=== PATIENT | male | born 1955 | race Caucasian/White ===

== ENCOUNTER 2022-04-21 16:39 | Emergency (ER) | payer OTHER ==
[2022-04-21] MEDS ORDERED: SODIUM CHLORIDE 0.9% 1,000 ML IV STA (16:51)
[2022-04-21 17:15] LABS: Basophils # (A) 0.1 k/uL (0-0.2); Basophils % (A) 2 %; Eosinophils # (A) 0.2 k/uL (0-0.7); Eosinophils % (A) 3 %; HCT 47.5 % (39.0-53.0); HGB 15.7 gm/dL (13.0-17.5); Lymphocytes # (A) 2.1 k/uL (1.0-4.8); Lymphocytes % (A) 29 %; MCH 30.6 pg (25.0-35.0); MCV 92.7 fL (80.0-100.0); Mean Platelet Volume 7.6; Monocytes # (A) 0.7 k/uL (0-1.0); Monocytes % (A) 10 %; Neutrophils % (A) 54 %; Platelet Count 238 k/uL (150-450); RBC 5.13 m/uL (4.30-5.90); WBC 7.4 k/uL (3.8-10.6)
[2022-04-21 17:23] LABS: ALT 37 U/L (4-49); AST 42 U/L (17-59); African American GFR (CKD) >90 (>60 ml/min/1.73 sqM); Albumin 4.2 g/dL (3.5-5.0); Alkaline Phosphatase 59 U/L (38-126); Anion Gap 8 mmol/L; Blood Urea Nitrogen 24 mg/dL (9-20); Calcium 8.9 mg/dL (8.4-10.2); Carbon Dioxide 24 mmol/L (22-30); Chloride 106 mmol/L (98-107); Creatine Kinase 82 U/L (55-170); Glucose 116 mg/dL (74-99); Magnesium 1.8 mg/dL (1.6-2.3); Non-African American GFR(CKD) >90 (>60 ml/min/1.73 sqM); Sodium 138 mmol/L (137-145); Total Bilirubin 1.3 mg/dL (0.2-1.3)
[2022-04-21 17:25] LABS: Potassium 4.6 mmol/L (3.5-5.1)
[2022-04-21 17:38] LABS: Prothrombin Time 11.2 sec (9.0-12.0)
[2022-04-21 17:42] LABS: Partial Thromboplastin Time 20.4 sec (22.0-30.0)
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
--- NOTE | 2022-04-21 18:02 | XR ---
EXAMINATION TYPE: XR chest 2V DATE OF EXAM: 04/21/2022 COMPARISON: NONE HISTORY: Syncope TECHNIQUE: 2 views FINDINGS: Heart and mediastinum are normal. Lungs are clear. Diaphragm is normal. Bony thorax appears normal. There are chest leads. IMPRESSION: Normal chest.
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
[2022-04-21 19:19] VITALS: BP 143/85; PULSE 84; RESP 16; TEMP 97.5
== END 2022-04-21 19:24 | disposition home or self-care (01) ==
LOC: EC 16:39
DX: S06.0X9A Concussion with loss of consciousness of unspecified duration, initial encounter (principal); R55 Syncope and collapse; J45.909 Unspecified asthma, uncomplicated; E11.9 Type 2 diabetes mellitus without complications; E78.5 Hyperlipidemia, unspecified; V19.9XXA Pedal cyclist (driver) (passenger) injured in unspecified traffic accident, initial encounter
CPT/HCPCS: 36415; 70450; 71046; 72125; 80053; 82550; 83735; 84484; 85025; 85610; 85730; 93005

== ENCOUNTER → 2024-05-15 | Outpatient (CLI) | payer OTHER ==
[2024-05-15 09:05] LABS: Partial Thromboplastin Time 24.5 sec (22.0-30.0); Prothrombin Time 10.9 sec (10.0-12.5)
[2024-05-15 15:31] LABS: Appearance,Urine Clear (Clear); Bilirubin,Urine Negative (Negative); Blood,Urine Negative (Negative); Color,Urine Yellow (Yellow); Ketones,Urine Trace (Negative); Nitrite,Urine Negative (Negative); PH, Urine 5.5; Specific Gravity,Urine 1.026 (1.001-1.030)
[2024-05-15 16:28] LABS: Basophils # (A) 0.07 X 10*3/uL (0.00-0.10); Basophils % (A) 0.9 %; Eosinophils # (A) 0.26 X 10*3/uL (0.04-0.35); Eosinophils % (A) 3.3 %; HCT 46.6 % (39.6-50.0); HGB 15.4 g/dL (13.0-17.0); Lymphocytes # (A) 2.12 X 10*3/uL (0.90-5.00); Lymphocytes % (A) 27.1 %; MCH 29.8 pg (27.0-32.0); MCV 90.3 FL (80.0-97.0); Mean Platelet Volume 9.8 FL (9.5-12.2); Monocytes # (A) 1.02 X 10*3/uL (0.20-1.00); NRBC Per 100 WBC 0 X 10*3/uL (0.00-0.01); Neutrophils % (A) 55.1 %; Platelet Count 257 X 10*3/uL (140-440); RBC 5.16 X 10*6/uL (4.40-5.60); RDW 13.4 % (11.5-14.5); WBC 7.82 X 10*3/uL (4.50-10.00)
[2024-05-15 17:17] LABS: BUN/Creat Ratio 23.08 Ratio (12.00-20.00); Blood Urea Nitrogen 27.7 mg/dL (9.0-27.0); Chloride 100 mmol/L (96-109); Glucose 160 mg/dL (70-110); Potassium 4.6 mmol/L (3.5-5.5); Sodium 138 mmol/L (135-145)
[2024-05-15 17:18] LABS: ALT 17 U/L (10-49); AST 16 U/L (14-35); Albumin 4.5 g/dL (3.8-4.9); Albumin/Globulin Ratio 1.73 Ratio (1.60-3.17); Alkaline Phosphatase 70 U/L (41-126); Calcium 9.6 mg/dL (8.7-10.3); Carbon Dioxide 23.9 mmol/L (21.6-31.8); Globulin 2.6 g/dL (1.6-3.3); Total Bilirubin 0.5 mg/dL (0.3-1.2); Total Protein 7.1 g/dL (6.2-8.2)
== END | disposition home or self-care (01) ==
LOC: LABPAT 08:04
PROVIDERS: ATTEND Orthopaedic Surgery
DX: Z01.812 Encounter for preprocedural laboratory examination (principal); M16.12 Unilateral primary osteoarthritis, left hip; Z22.322 Carrier or suspected carrier of Methicillin resistant Staphylococcus aureus
CPT/HCPCS: 80053; 81003; 83036; 85025; 85610; 85730; 86850; 86900; 86901; 87070

== ENCOUNTER 2024-05-26 08:45 | Day surgery (SDC) | payer OTHER ==
[~2024-05-26 08:45] MED LIST: HYDROmorphone 0.5 MG/0.5 ML SYRINGE IVP PRN; LIDOCAINE 1% (10MG/ML) FOR IV START INTRADERMA PRN; TRANEXAMIC 1,000 MG/100ML-NACL 1,000 MG in SALINE 1 100ML.BAG IV PRN; TRANEXAMIC 1,000 MG/100ML-NACL 1,000 MG in SALINE 1 100ML.BAG IVPB PRN
[2024-05-26] MEDS: LACTATED RINGERS 1,000 ML IV SCH (09:45)
[2024-05-26 09:53] LABS: Glucose,Whole Blood 199 mg/dL (70-110)
[2024-05-26] MEDS: IV FLUID CONTINUATION 1,000 ML IV ONE (09:55)
[2024-05-26] MEDS: oxyCODONE ER 10 MG TAB.ER.12H PO PRN (10:00)
[2024-05-26] MEDS: DOCUSATE 100 MG CAP PO PRN (10:00)
[2024-05-26] MEDS: KETOROLAC 15 MG/ML 1 ML VIAL IVP PRN (10:01)
[2024-05-26] MEDS: ONDANSETRON 4 MG/2 ML VIAL IVP PRN (10:01)
[2024-05-26] MEDS: DEXAMETHASONE SOD PHOSPHATE 10 MG/ML 1 ML VIAL IV PRN (10:01)
[2024-05-26] MEDS: FAMOTIDINE 20 MG/2 ML VIAL IVP PRN (10:01)
[2024-05-26] MEDS: ACETAMINOPHEN TAB 500 MG TAB PO PRN (10:01)
[2024-05-26] MEDS: MIDAZOLAM 2 MG/2 ML VIAL IV ONE (10:07)
[2024-05-26] MEDS ORDERED: ROPIVACAINE 5 MG/ML 30 ML VIAL ONE (11:11)
[2024-05-26] MEDS ORDERED: fentaNYL (PF) 50 MCG/ML 2 ML AMP ONE (11:11)
[2024-05-26] MEDS ORDERED: DEXAMETHASONE SOD PHOSPHATE 4 MG/ML 1 ML VIAL ONE (11:11)
[2024-05-26] MEDS ORDERED: GLYCOPYRROLATE 0.2 MG/ML 2 ML VIAL ONE (11:11)
[2024-05-26] MEDS ORDERED: HYDROmorphone (PF) 1 MG/ML ONE (11:11)
[2024-05-26] MEDS ORDERED: MIDAZOLAM 2 MG/2 ML VIAL ONE (11:11)
[2024-05-26] MEDS ORDERED: LIDOCAINE 1% INJ 10MG/ML (20 ML MDV) ONE (11:11)
[2024-05-26] MEDS ORDERED: PHENYLEPHRINE-0.9% NACL SYG 1,000 MCG/10 ML SYRINGE ONE (11:11)
[2024-05-26] MEDS ORDERED: METOPROLOL TARTRATE 5 MG/5 ML VIAL IVP ONE (11:11)
[2024-05-26] MEDS ORDERED: ROCURONIUM 10 MG/ML (5 ML VIAL) IV ONE (11:11)
[2024-05-26] MEDS ORDERED: TRANEXAMIC 1,000 MG/100ML-NACL PREMIX BAG ONE (11:11)
[2024-05-26] MEDS ORDERED: NEOSTIGMINE 1 MG/ML 10 ML VIAL ONE (11:11)
[2024-05-26] MEDS ORDERED: SUCCINYLCHOLINE CHLORIDE 200 MG/10 ML VIAL IV ONE (11:11)
[2024-05-26] MEDS ORDERED: PROPOFOL 10 MG/ML 20 ML VIAL IV ONE (11:11)
[2024-05-26] MEDS ORDERED: KETAMINE HCL IN 0.9 % NACL 50 MG/5 ML SYRINGE ONE (11:11)
[2024-05-26] MEDS: ROPIVACAINE/EPI/CLONIDINE/KET 50 ML SYRINGE MISCELLANE PRN (11:50)
[2024-05-26] MEDS: LACTATED RINGERS 1,000 ML IV ONE (12:40)
--- NOTE | 2024-05-26 13:26 | FL ---
EXAMINATION TYPE: FL guidance operating room, XR Hip Limited LT Intraoperative/procedural fluoroscopi c services were provided. Total fluoroscopy time is 33 seconds with a total of 6 submitted images to PACS. Please see the operative/procedural note for further details. DAP: 1.9680 mGym2
--- NOTE | 2024-05-26 13:26 | P.OP ---
Date of Procedure: 05/26/24 Preoperative Diagnosis: 1. Severe Left hip osteoarthritis 2. BMI 36.6 Postoperative Diagnosis: Same Procedure(s) Performed: Left direct anterior total hip arthroplasty Implants: 1. Junaid Trident II Acetabular Cup, Size #52 2. Junaid Insignia Size # 4 Femoral Stem, High Offset 3. Biolox delta femoral head, 36 mm, - 5 mm neck Anesthesia: ANTONIOA, regional Surgeon: Raghav Hay Collision Worker #1: Jonah Squires Estimated Blood Loss (ml): 200 IV fluids (ml): 800 Pathology: none sent Condition: stable Indications for Procedure: I had a long discussion with the patient in the office on the potential risks and complications of an elective total hip replacement through a direct anterior approach. Risks discussed include, but are certainly not limited to, risks from anesthesia, superficial infection requiring local wound care or antibiotics, deep maira-prosthetic joint infection and the treatment required to eradicate infection, intraoperative fracture, postoperative periprosthetic fracture, damage to local blood vessels or nerves particularly the lateral femoral cutaneous nerve, delayed wound healing requiring local wound care or possibly surgical debridement, hip dislocation, leg length discrepancy, soft tissue i rritation around the total hip implant such as iliopsoas tendinitis or trochanteric bursitis, wear and osteolysis from the implants, squeaking or audible noises, groin pain, thigh pain, heterotopic ossification, stiffness, aseptic loosening of the implants, dissatisfaction with surgical outcome, need for revision surgery, DVT, PE, swelling of the operative extremity, acute coronary event, stroke, failure to thrive, and possibly loss of life or limb. The patient understands that while these are the most common complications after an elective hip replacement there are certainly other less common complications possible. They were given ample time to ask questions regarding the potential complications of a hip replacement. Following our discussion the patient provided their verbal and written consent to go forward with an elective total hip replacement. Description of Procedure: The patient was identified in the preoperative holding area and the correct hip was marked with my initials. I reviewed the procedure and consent with the patient. All of their questions were answered. The patient was then brought back into the operating room by anesthesia. While on the [facility] anesthesia was administered by the anesthesia team. Preoperative antibiotics and tranexamic acid were also given. After the patient was under anesthesia I examined their ankles to determine their preoperative leg length discrepancy. The skin over the anterior aspect of the hip was shaved to remove hair over the site of planned incision. Both feet and ankles were padded with webril and boots for the [place] were applied. The patient was then carefully transferred onto the [place] table. A perineal post was immediately placed. The arms were placed on arm holders and were well-padded. Both boots were secured to the spars on the [place] table. The patient was positioned so that the pelvis was centered over the post. Nonsterile drapes were applied. A timeout was performed identifying the correct patient, operative extremity, and procedure. At this point fluoroscopy was brought in to take preoperative images of the pelvis and operative hip. Using the standing AP pelvis from the office as a template, a comparable image was obtained with fluoroscopy. A metallic bar was used to create a bi-ischial line for use as a reference to leg length adjustments during the procedure. Global offset was also measured on both the operative and nonoperative leg. Fluoroscopy was then brought out and a pre-scrub using a chlorhexidine scrub brush was performed. The operative limb was then prepped and draped in the standard sterile fashion. An anterior longitudinal incision was made lateral and distal to the ASIS. The skin and subcutaneous tissues were incised sharply. The underlying tensor fascia was identified and incised in its midportion. The fascia was dissected free from the underlying muscle and the muscle belly was retracted. A blunt tipped cobra retractor was placed over the superior neck under the muscle fibers of the gluteus minimus. The deep enveloping fascia of the tensor was incised. The anterior leash of vessels were then identified and cauterized. The fascia between the rectus and the capsule was then incised and the pre-capsular fat was excised. A second Cobra was placed inferior to the neck. The interval between the rectus and iliocapsularis and the hip capsule was developed and a retractor was placed carefully over the anterior rim of the acetabulum. A T-shaped anterior capsulotomy was performed. The superior capsular leaflet was left in place in the inferior capsular flap was excised. The Cobra retractors were placed intracapsularly. We then made a femoral neck osteotomy according to preoperative and intraoperative templating and confirmed the level of the osteotomy using fluoroscopic imaging. The femoral head was removed, passed off to the back table, and sized. The superior capsular flap was excised. Retractors were placed circumferentially exposing the acetabulum. We then circumferentially debrided the acetabulum free of labrum and osteophytes. The pulvinar was removed to fully visualize the cotyloid fossa. We then sequentially reamed to achieve peripheral fit and excellent bleeding subchondral bone. The socket was thoroughly irrigated. The acetabular component was impacted into the appropriate position using fluoroscopy to guide version, inclination, and depth of insertion taking care to have a comparable image of the AP pelvis to the standing image taken in the office. An excellent press-fit was achieved and final position was confirmed using fluoroscopy. The press fit was augmented with bony cancellus dome screws. The liner was then impacted into the socket. Attention was then turned to the femur. The remnant dorsal lateral capsule was excised. The short external rotators were visible and protected. A bone hook was used to confirm appropriate translation of the trochanter away from the acetabulum. The leg was then extended and adducted and the bone hook was used to elevate the femur for broaching. A box osteotome and blunt tipped canal sound was then utilized to gain access to the femoral canal. We then sequentially broached the femur in appropriate anteversion until excellent torsional stability was achieved. The neck cut was brought flush to the trial broach with a calcar planar. A trial neck and head were then placed onto the broach and the hip was atraumatically reduced under direct visualization. External rotation to 90 was performed to assess stability. Fluoroscopy was brought in. An AP and lateral fluoroscopic image of the proximal femur was obtained to assess position and fill of the trial broach. An AP of the pelvis was then obtained and matched to the preoperative image taken. A bi-ischial bar was then placed and measurements were taken to assess changes in length and offset. The hip was then carefully dislocated, the proximal femur was exposed, and the trial implants were removed. The wound and proximal femur was thoroughly irrigated using sterile saline and pulsatile lavage. The final femoral implant was dispensed and gently tapped into place generating an excellent press-fit. The trunnion was cleansed and the final head was tapped into place to engage the Kearns taper. The acetabulum was irrigated and visualized to be free of debris. The hip was carefully reduced. Stability was checked clinically with external rotation to 90 and there was no evidence of instability. Final fluoroscopic images were taken. The wound was then thoroughly irrigated and soaked with a dilute Betadine rinse for 3 minutes. 3 L of sterile saline was irrigated through the wound using pulsatile lavage. Local anesthetic cocktail was injected into the soft tissues around the surgical field. The wound was then closed in layers. A sterile dressing was placed over the surgical incision. The drapes were taken down and the patient was carefully transferred off of the [place] table. Following removal of the boots the leg lengths felt acceptable. The patient was then taken to recovery room having tolerated the procedure well. Jonah Squires PA-C was required as a skilled preschool assistant director due to the complexity of surgery for patient positioning, draping, exposure, retraction, closure of wound and application of dressing. PLAN: The patient can weight-bear as tolerated on the operative extremity. DVT prophylaxis with aspirin 81 mg twice a day based on preoperative risk stratification. Physical therapy for gait training. Leave surgical dressing in place. Internal medicine for perioperative medical management.
[2024-05-26] MEDS ORDERED: HYDROcodone/APAP 5-325MG 1 EACH TAB PO PRN (13:37)
[2024-05-26] MEDS ORDERED: MAGNESIUM HYDROXIDE 2,400 MG/30 ML CUP PO PRN (13:37)
[2024-05-26] MEDS ORDERED: hydrOXYzine pamoate 25 MG CAP PO PRN (13:37)
[2024-05-26] MEDS ORDERED: NALOXONE 0.4 MG/ML 1 ML VIAL IV PRN (13:37)
[2024-05-26] MEDS ORDERED: HYDROmorphone 0.5 MG/0.5 ML SYRINGE IVP PRN ×3 (13:37)
[2024-05-26 14:55] LABS: Glucose,Whole Blood 296 mg/dL (70-110)
[2024-05-26] MEDS: INSULIN ASPART (NovoLOG) 100 UNIT/ML VIAL SQ ONE (15:07)
[2024-05-26 16:30] LABS: Glucose,Whole Blood 286 mg/dL (70-110)
[2024-05-26] MEDS: ASPIRIN 81 MG PO SCH (20:42)
[2024-05-26] MEDS: SENNOSIDES-DOCUSATE SODIUM 1 EACH TAB PO SCH (20:42)
[2024-05-26] MEDS: HYDROcodone/APAP 10-325MG 1 EACH TAB PO PRN (20:43)
[2024-05-26] MEDS: SODIUM CHLORIDE 0.9% 1,000 ML IV SCH (20:44)
--- NOTE | 2024-05-27 01:40 | P.CONS ---
History of Present Illness - Reason for Consult Consult date: 05/26/24 Medication management s/p total left hip arthroplasty - History of Present Illness Patient is a 68-year-old male with a PMH of type II DM, hypothyroidism, hyperlipidemia, and obstructive sleep apnea who was admitted for an elective left total hip arthroplasty. Patient had no immediate postoperative complications. Patient notes pain on surgical site on the left hip which is is manageable with pain medication. Patient reported that his left hip pain was a 2 out of 10 at the time of interview. He denies light headedness, chest pain, SOB, abdominal pain, weakness. Patient reports that he is passing urine, but has not ambulated, passed flatus or had a bowel movement. POC glucose 286 Review of systems: Pertinent positives and negatives as discussed in HPI, a complete review of systems was performed and all other systems are negative. Physical examination: Vital signs reviewed General: non toxic, no distress, appears at stated age, large body habitus Derm: no unusual rashes/lesions, warm, wound dressing on left hip is dry and clean, no erythema or swelling onthe surrounding skin Head: atraumatic, normocephalic, symmetric Eyes: EOMI, no lid lag, anicteric sclera, pupils equal round reactive to light ENT: Nose and ears atraumatic Neck: No cervical lymphadenopathy, trachea midline, supple Mouth: no lip lesion, mucus membranes moist Cardiovascular: S1S2 reg, no murmur, Lungs: CTA bilateral, no rhonchi, no rales, no accessory muscle use Abdominal: soft, nontender to palpation, no guarding Ext: muscle strength 5 out of 5 in all extremities grossly except LLE due to pain, distal left leg range of motion intact,, no gross muscle atrophy, no contractures, positive dorsalis pedis pulse bilateral, no edema Neuro: CN II-XI grossly intact, no gross focal neuro deficits Psych: Alert, oriented, appropriate affect and mood Assessment/Plan: #. Chronic conditions: Type 2 diabetes, hypothyroidism, depression, hyperlipidemia Resume home medications: Albuterol inhaler 90 mcg, alprazolam 0.5 mg p.o., Symbicort inhaler 160-4.5 mcg, Pristiq 100 mcg, Synthroid 75 mcg p.o., Zestril 2.5 mcg p.o., melatonin 3 mg p.o. simvastatin 10 mg p.o., zinc 50 mg p.o., #Status post left total hip replacement Defer management of pain medication and DVT prophylaxis to primary surgical team. #. Type 2 diabetes with hyperglycemia POC glucose 286 Placed on insulin sliding scale Check HbA1c We appreciate being part of this patient's care. We will follow patient along with you. Thank you for this consult. Past Medical History Past Medical History: Asthma, COPD, Diabetes Mellitus, Hearing Disorder / Deafness, Hyperlipidemia, Osteoarthritis (OA) Additional Past Medical History / Comment(s): legally deaf-does have hearing aids, does not sign, reads lips very well, takes BP pill for kidneys, not for high BP per pt. History of Any Multi-Drug Resistant Organisms: None Reported Past Surgical History: Hernia Repair Additional Past Surgical History / Comment(s): colonoscopy Past Anesthesia/Blood Transfusion Reactions: No Reported Reaction Smoking Status: Never smoker Medications and Allergies Home Medications Medication Instructions Recorded Confirmed Type ALPRAZolam [Xanax] 0.5 mg PO TID PRN 11/02/14 05/26/24 History Desvenlafaxine Succinate [Pristiq 100 mg PO DAILY 11/02/14 05/26/24 History ER] Levothyroxine Sodium [Synthroid] 75 mcg PO DAILY 11/02/14 05/26/24 History Melatonin 3 mg PO HS 11/02/14 05/26/24 History Naproxen [Naprosyn] 500 mg PO Q12HR PRN 11/02/14 05/24/24 History Simvastatin [Zocor] 10 mg PO HS 11/02/14 05/26/24 History lisinopriL [Zestril] 2.5 mg PO DAILY 11/02/14 05/26/24 History metFORMIN HCL [Glucophage] 1,000 mg PO BID 11/02/14 05/26/24 History Albuterol Inhaler [Ventolin Hfa 1 - 2 puff INHALATION Q6H PRN 05/24/24 05/26/24 History Inhaler] Budesonide-Formot 160-4.5 Mcg 2 puff INHALATION BID 05/24/24 05/26/24 History [Symbicort 160-4.5 Mcg Inhaler] Celecoxib [CeleBREX] 200 mg PO DAILY 05/24/24 05/24/24 History Cetirizine HCl [Zyrtec] 10 mg PO DAILY 05/24/24 05/26/24 History Mupirocin [Bactroban Nasal 1 applic TOPICAL DIRECTED 05/24/24 05/26/24 History Ointment 2% (with applicator)] Pioglitazone [Actos] 30 mg PO DAILY 05/24/24 05/26/24 History Zinc Gluconate [Zinc] 50 mg PO BID 05/24/24 05/24/24 History glipiZIDE [Glucotrol] 5 mg PO AC-BRKFST 05/24/24 05/26/24 History Aspirin 81 mg PO BID #60 tab 05/26/24 Rx HYDROcodone/APAP 5-325MG [[place] 5] 1 each PO Q6HR PRN #32 tab 05/26/24 Rx Omeprazole 20 mg PO DAILY #30 tab 05/26/24 Rx Ondansetron [Zofran] 4 mg PO Q6HR PRN #30 tab 05/26/24 Rx Sennosides-Docusate Sodium 1 tab PO BID PRN #60 tablet 05/26/24 Rx [Senokot-S] Allergies Allergy/AdvReac Type Severity Reaction Status Date / Time No Known Allergies Allergy Verified 05/26/24 09:22 Physical Exam Vitals: Vital Signs Temp Pulse Pulse Resp BP Pulse Ox 05/26/24 18:30 87 17 104/56 95 05/26/24 18:00 96 15 102/57 97 05/26/24 17:30 98 17 95/53 96 05/26/24 17:00 92 19 104/57 96 05/26/24 16:29 94 18 97/55 94 L 05/26/24 16:00 96 17 104/55 96 05/26/24 15:45 98 17 104/55 95 05/26/24 15:30 101 H 16 101/59 98 05/26/24 15:15 96 16 111/55 98 05/26/24 15:00 95 16 104/55 98 05/26/24 14:45 92 16 103/59 98 05/26/24 14:30 90 16 104/55 98 05/26/24 14:16 94 16 104/57 98 05/26/24 14:00 93 16 105/56 98 05/26/24 13:45 92 16 110/54 98 05/26/24 13:35 98.4 F 100 14 129/62 98 05/26/24 10:35 92 16 131/70 98 05/26/24 09:56 138/84 05/26/24 09:29 98.0 F 98 16 178/82 98 Intake and Output 05/26/24 05/26/24 05/26/24 06:59 14:59 22:59 Intake Total 1550 Output Total 200 Balance 1350 Intake: IV 1550 Output: Estimated Blood Loss 200 Other: Weight 99.7 kg Results Labs: Abnormal Lab Results - Last 24 Hours (Table) 05/26/24 05/26/24 05/26/24 Range/Units 09:49 14:53 16:27 POC Glucose (mg/dL) 199 H 296 H 286 H (70-110) mg/dL
[2024-05-27] MEDS ORDERED: ALBUTEROL NEBULIZED 2.5 MG/3 ML INHALATION PRN (03:28)
[2024-05-27] MEDS ORDERED: ALPRAZolam 0.5 MG TAB PO PRN (03:28)
[2024-05-27 03:48] VITALS: PULSE 89
[2024-05-27 06:30] LABS: Glucose,Whole Blood 231 mg/dL (70-110)
[2024-05-27] MEDS: INSULIN ASPART (NovoLOG) 100 UNIT/ML VIAL SQ SCH (06:32)
[2024-05-27] MEDS: LEVOTHYROXINE 75 MCG TAB PO SCH (06:32)
[2024-05-27] MEDS ORDERED: HYDROmorphone 0.5 MG/0.5 ML SYRINGE IVP PRN (07:00)
[2024-05-27] MEDS ORDERED: glipiZIDE 5 MG TAB PO SCH (07:30)
[2024-05-27 08:40] VITALS: BP 101/56; RESP 16; TEMP 98
[2024-05-27] MEDS: LORATADINE 10 MG TAB PO SCH (08:48)
[2024-05-27] MEDS: ZINC SULFATE 220 MG CAP PO SCH (08:48)
[2024-05-27] MEDS: DESVENLAFAXINE SUCCINATE 50 MG TAB.ER.24H PO SCH (08:49)
[2024-05-27 08:59] LABS: Basophils % (A) 0 %; Eosinophils % (A) 0 %; HCT 35.6 % (39.0-53.0); HGB 11.7 gm/dL (13.0-17.5); Lymphocytes # (A) 1.6 k/uL (1.0-4.8); Lymphocytes % (A) 11 %; MCH 30.2 pg (25.0-35.0); MCHC 32.7 g/dL (31.0-37.0); MCV 92.4 fL (80.0-100.0); Mean Platelet Volume 7.3; Monocytes # (A) 1.6 k/uL (0-1.0); Monocytes % (A) 11 %; Neutrophils % (A) 76 %; Platelet Count 230 k/uL (150-450); RBC 3.85 m/uL (4.30-5.90); RDW 13.2 % (11.5-15.5); WBC 14.5 k/uL (3.8-10.6)
[2024-05-27] MEDS ORDERED: metFORMIN 500 MG TAB PO SCH (09:00)
[2024-05-27] MEDS ORDERED: PIOGLITAZONE 30 MG TAB PO SCH (09:00)
[2024-05-27] MEDS: SYMBICORT 160-4.5 MCG INHALER INHALATION SCH (09:21)
--- NOTE | 2024-05-27 09:47 | P.DS ---
Providers Date of admission: 05/26/2024 Attending physician: Raghav Hay Consults: 05/26/24 13:37 Consult Physician Routine Consulting Provider: Ashutosh Rizo Consult Reason/Comments: Medical management Do you want consulting provider notified?: Yes [facility] Course: Patient is very pleasant 68-year-old male who is admitted under my care yesterday and underwent an on K left total hip replacement. Following surgery was transferred to the orthopedic floor. He received 2 doses of postoperative antibiotics. He was transitioned from IV to oral pain medication. He was seen postoperative day #1 and was doing well. His dressing was intact. Femoral nerve function was intact. He is able to actively plantar flex and dorsiflex his ankle and his toes. He was seen by physical therapy. He was also seen by internal medicine. He did well and was cleared for discharge home. Plan - Discharge Summary Discharge Rx Participant: No New Discharge Prescriptions: New HYDROcodone/APAP 5-325MG [[place] 5] 1 each PO Q6HR PRN #32 tab PRN Reason: Pain Sennosides-Docusate Sodium [Senokot-S] 1 tab PO BID PRN #60 tablet PRN Reason: Constipation Aspirin 81 mg PO BID #60 tab Omeprazole 20 mg PO DAILY #30 tab Ondansetron [Zofran] 4 mg PO Q6HR PRN #30 tab PRN Reason: Nausea No Action lisinopriL [Zestril] 2.5 mg PO DAILY ALPRAZolam [Xanax] 0.5 mg PO TID PRN PRN Reason: Anxiety metFORMIN HCL [Glucophage] 1,000 mg PO BID Simvastatin [Zocor] 10 mg PO HS Naproxen [Naprosyn] 500 mg PO Q12HR PRN PRN Reason: Pain Levothyroxine Sodium [Synthroid] 75 mcg PO DAILY Desvenlafaxine Succinate [Pristiq ER] 100 mg PO DAILY Melatonin 3 mg PO HS Budesonide-Formot 160-4.5 Mcg [Symbicort 160-4.5 Mcg Inhaler] 2 puff INHALATION BID Zinc Gluconate [Zinc] 50 mg PO BID Pioglitazone [Actos] 30 mg PO DAILY glipiZIDE [Glucotrol] 5 mg PO AC-BRKFST Albuterol Inhaler [Ventolin Hfa Inhaler] 1 - 2 puff INHALATION Q6H PRN PRN Reason: Shortness Of Breath Celecoxib [CeleBREX] 200 mg PO DAILY Mupirocin [Bactroban Nasal Ointment 2% (with applicator)] 1 applic TOPICAL DIRECTED Cetirizine HCl [Zyrtec] 10 mg PO DAILY Discharge Medication List ALPRAZolam [Xanax] 0.5 mg PO TID PRN 11/02/14 [History] Desvenlafaxine Succinate [Pristiq ER] 100 mg PO DAILY 11/02/14 [History] Levothyroxine Sodium [Synthroid] 75 mcg PO DAILY 11/02/14 [History] Melatonin 3 mg PO HS 11/02/14 [History] Naproxen [Naprosyn] 500 mg PO Q12HR PRN 11/02/14 [History] Simvastatin [Zocor] 10 mg PO HS 11/02/14 [History] lisinopriL [Zestril] 2.5 mg PO DAILY 11/02/14 [History] metFORMIN HCL [Glucophage] 1,000 mg PO BID 11/02/14 [History] Albuterol Inhaler [Ventolin Hfa Inhaler] 1 - 2 puff INHALATION Q6H PRN 05/24/24 [History] Budesonide-Formot 160-4.5 Mcg [Symbicort 160-4.5 Mcg Inhaler] 2 puff INHALATION BID 05/24/24 [History] Celecoxib [CeleBREX] 200 mg PO DAILY 05/24/24 [History] Cetirizine HCl [Zyrtec] 10 mg PO DAILY 05/24/24 [History] Mupirocin [Bactroban Nasal Ointment 2% (with applicator)] 1 applic TOPICAL DIRECTED 05/24/24 [History] Pioglitazone [Actos] 30 mg PO DAILY 05/24/24 [History] Zinc Gluconate [Zinc] 50 mg PO BID 05/24/24 [History] glipiZIDE [Glucotrol] 5 mg PO AC-BRKFST 05/24/24 [History] Aspirin 81 mg PO BID #60 tab 05/26/24 [Rx] HYDROcodone/APAP 5-325MG [[place] 5] 1 each PO Q6HR PRN #32 tab 08/02/24 [Rx] Omeprazole 20 mg PO DAILY #30 tab 05/26/24 [Rx] Ondansetron [Zofran] 4 mg PO Q6HR PRN #30 tab 05/26/24 [Rx] Sennosides-Docusate Sodium [Senokot-S] 1 tab PO BID PRN #60 tablet 05/26/24 [Rx] Follow up Appointment(s)/Referral(s): Raghav Hay MD [Medical Doctor] - 2 Weeks Activity/Diet/Wound Care/Special Instructions: 1. Weight-bear as tolerated on your operative extremity unless instructed otherwise. Use a walker or other assistive device to ambulate. 2. Leave surgical dressing in place. If your dressing becomes saturated with blood, there is drainage, or the dressing becomes loose please contact the office. 3. It is okay to shower with your surgical dressing, but do not submerge in water (no hot tubs, bath's, swimming etc.) 4. Take your blood clot prevention medication as prescribed (aspirin, Eliquis, Xarelto, and Plavix are commonly prescribed medications for blood clot prevention) 5. While taking [place] or Percocet for pain take a stool softener (Ex: Colace) and drink lots of water. 6. Keep all follow-up appointments as scheduled. You will usually be seen in 1-2 weeks following surgery. 7. Please contact the office with any questions or concerns [phone] Discharge Disposition: HOME WITH HOME HEALTH SERVICES
[2024-05-27 12:00] LABS: Glucose,Whole Blood 191 mg/dL (70-110)
--- NOTE | 2024-05-27 13:57 | P.PN ---
Subjective Progress Note Date: 05/27/24 Principal diagnosis: Subjective: Patient seen at bedside. No significant events overnight. Pertinent positives and negatives discussed above, a complete review of systems was preformed and all the other systems were negative. Vitals Signs Reviewed. Physical examination: Vital signs reviewed General: non toxic, no distress, appears at stated age, large body habitus Derm: no unusual rashes/lesions, warm, wound dressing on left hip is dry and clean, no erythema or swelling on the surrounding skin Head: atraumatic, normocephalic, symmetric Eyes: EOMI, no lid lag, anicteric sclera, pupils equal round reactive to light ENT: Nose and ears atraumatic Neck: No cervical lymphadenopathy, trachea midline, supple Mouth: no lip lesion, mucus membranes moist Cardiovascular: S1S2 reg, no murmur, Lungs: CTA bilateral, no rhonchi, no rales, no accessory muscle use Abdominal: soft, nontender to palpation, no guarding Ext: muscle strength 5 out of 5 in all extremities grossly except LLE due to pain, distal left leg range of motion intact,, no gross muscle atrophy, no contractures, positive dorsalis pedis pulse bilateral, no edema Neuro: CN II-XI grossly intact, no gross focal neuro deficits Psych: Alert, oriented, appropriate affect and mood Data Reviewed Today: Patient Labs: WBC 14.5, hemoglobin 11.7, platelets 230,000, POC glucose 191 Imaging: No new imaging Assessment and Plan: 68-year-old male with a PMH of type II DM, hypothyroidism, hyperlipidemia, and obstructive sleep apnea who was admitted for an elective left total hip arthroplasty. Active Status post left total hip replacement Leukocytosis, anticipated outcome of surgery Mild acute blood loss anemia, anticipated outcome of surgery Optimize pain control and continue DVT prophylaxis as per primary team Patient will be discharged today Type 2 diabetes, A1c 7.4, with hyperglycemia Follow-up with PCP in 1 week for optimization of glucose control to ensure optimal wound healing Advised to check blood sugars at home -Sliding scale insulin, monitor for hypoglycemia while inpatient -Continue on metformin 1000 twice daily, glipizide 5 mg daily, pioglitazone 30 mg daily at the time of discharge Hypertension -Continue lisinopril 2.5 mg daily Chronic Hypothyroidism-continue levothyroxine 75 mcg daily Hyperlipidemia-continue simvastatin 10 mg nightly Obstructive sleep apnea COPD-continue Symbicort twice daily, albuterol as needed Depression/anxiety-oral Xanax as needed, desvenlafaxine 100 mg daily Thank you for allowing us to participate in the care of this pleasant patient. Do not hesitate to contact us with questions. Someone can be reached from the [facility] hospitalist group all hours of the day at [phone] or via perfect serve. I have seen and evaluated the patient today. Discussed with the resident and agree with the residents finding and plan as documented in the resident's note. Changes highlighted in blue font. Objective - Vital Signs Vital signs: Vital Signs Temp 98.0 F 05/27/24 07:40 Pulse 89 05/27/24 07:40 Resp 16 05/27/24 07:40 BP 101/56 05/27/24 07:40 Pulse Ox 96 05/27/24 07:40 FiO2 Intake & Output 05/26/24 05/27/24 05/27/24 18:59 06:59 18:59 Intake Total 1550 Output Total 200 1400 Balance 1350 -1400 Weight 99.7 kg 99.7 kg Intake: IV 1550 Output: Urine 1400 Estimated Blood Loss 200 Other: Voiding Method Urinal - Labs CBC & Chem 7: 05/27/24 08:18 Labs: Abnormal Lab Results - Last 24 Hours (Table) 05/26/24 05/26/24 05/26/24 Range/Units 09:49 14:53 16:27 POC Glucose (mg/dL) 199 H 296 H 286 H (70-110) mg/dL 05/27/24 Range/Units 06:28 POC Glucose (mg/dL) 231 H (70-110) mg/dL
[2024-05-27] MEDS ORDERED: ATORVASTATIN 10 MG TAB PO SCH (21:00)
[2024-05-27] MEDS ORDERED: MELATONIN 3 MG TABLET PO SCH (21:00)
--- NOTE | 2024-05-28 20:42 | P.ANPRN ---
Procedure Note - Anesthesia - Nerve Block Performed Left López Single Time Out Performed: Yes Date of Procedure: 05/26/24 Procedure Start Time: : Procedure Stop Time: : Location of Patient: PreOp Indication: Acute Post-Operative Pain, Requested by Surgeon Sedation Type: Sedate with meaningful contact maintained Preparation: Sterile Prep Position: Supine Needle Types: Pajunk Needle Gauge: 21 Ultrasound used to visualize needle placement: Yes Ultrasound used to observe medication spread: Yes Blood Aspirated: No Pain Paresthesia on Injection Noted: No Resistance on Injection: Normal Image Stored and Saved: Yes Events: Uneventful and Well Tolerated (Ropivacaine 0.5% 20 cc plus dexamethasone 4 mg)
== END 2024-05-27 14:50 | disposition home health service (06) ==
LOC: OR 08:45 → 4SSUR 13:35 → OR 05-27 14:50
PROVIDERS: ATTEND Orthopaedic Surgery
DX: M16.12 Unilateral primary osteoarthritis, left hip (principal); E03.9 Hypothyroidism, unspecified; E11.65 Type 2 diabetes mellitus with hyperglycemia; E78.5 Hyperlipidemia, unspecified; F32.A Depression, unspecified; G47.33 Obstructive sleep apnea (adult) (pediatric); G89.18 Other acute postprocedural pain; H91.90 Unspecified hearing loss, unspecified ear; I10 Essential (primary) hypertension; J44.89 Other specified chronic obstructive pulmonary disease; Z79.1 Long term (current) use of non-steroidal anti-inflammatories (NSAID); Z79.51 Long term (current) use of inhaled steroids; Z79.82 Long term (current) use of aspirin; Z79.84 Long term (current) use of oral hypoglycemic drugs; Z79.890 Hormone replacement therapy; Z79.899 Other long term (current) drug therapy; Z98.890 Other specified postprocedural states
CPT/HCPCS: 94640; 94760; 97161; 85025; 83036; 73501; 27130; 64447; J2250; J1100; J0690 ×2; J2405; J3490; J1885

== ENCOUNTER → 2024-08-07 | Outpatient (CLI) | payer OTHER ==
--- NOTE | 2024-08-07 09:23 | CT ---
EXAMINATION TYPE: CT right knee - JUANCHO Protocol CT DLP: 997 mGycm, Automated exposure control for dose reduction was used. DATE OF EXAM: 08/07/2024 9:13 AM COMPARISON: None CLINICAL INDICATION: Male, 68 years old with history of M17.11 UNILATERAL PRIMARY OSTEOARTHRITIS, RIG HT KN; PHH, RT knee JUANCHO protocol TECHNIQUE: Axial images were obtained of the CT right knee - JUANCHO Protocol, Additional coronal and sa gittal reformatted images and soft tissue and bone window were obtained for review. . Contrast used: mL of , (None if empty) Oral contrast used: (None if empty) FINDINGS: The visualized portion of the hips demonstrate osteoarthrosis changes with osteophyte forma tion of the acetabulum of the right hip and left hip arthroplasty with hardware intact. No acute intr apelvic process. The bony structures of the pelvis are intact. The visualized knee demonstrates osteophyte formation of the tibial plateau, the patella and femoral condyles. There is joint space narrowing and subchondral sclerosis. No evidence of fracture. Visualized ankle demonstrates multifocal osteoarthrosis changes with osteophyte formation and mild frances int space narrowing. No evidence of fractures. Fatty changes inguinal canals. Degeneration changes of the sacroiliac joints with osteophyte formatio n bilaterally right greater left. IMPRESSION: End-stage osteoarthrosis changes of the right knee. [facility], , 08/07/2024 9:20 AM
== END | disposition home or self-care (01) ==
LOC: RADCTMAIN 07:50
PROVIDERS: ATTEND Orthopaedic Surgery
DX: M17.11 Unilateral primary osteoarthritis, right knee

== ENCOUNTER → 2024-08-15 | Outpatient (CLI) | payer OTHER ==
[2024-08-15 11:57] LABS: Partial Thromboplastin Time 23.8 sec (22.0-30.0); Prothrombin Time 10.7 sec (10.0-12.5)
[2024-08-15 15:52] LABS: HCT 45.8 % (39.6-50.0); HGB 14.7 g/dL (13.0-17.0); MCH 28.8 pg (27.0-32.0); MCHC 32.1 g/dL (32.0-37.0); MCV 89.6 FL (80.0-97.0); Mean Platelet Volume 9.6 FL (9.5-12.2); NRBC Per 100 WBC 0 X 10*3/uL (0.00-0.01); Platelet Count 281 X 10*3/uL (140-440); RBC 5.11 X 10*6/uL (4.40-5.60); WBC 8.46 X 10*3/uL (4.50-10.00)
[2024-08-15 17:27] LABS: ALT 18 U/L (10-49); AST 17 U/L (14-35); Albumin 4.3 g/dL (3.8-4.9); Albumin/Globulin Ratio 1.65 Ratio (1.60-3.17); Alkaline Phosphatase 77 U/L (41-126); Blood Urea Nitrogen 30.8 mg/dL (9.0-27.0); Calcium 9.6 mg/dL (8.7-10.3); Carbon Dioxide 25.3 mmol/L (21.6-31.8); Chloride 100 mmol/L (96-109); Globulin 2.6 g/dL (1.6-3.3); Glucose 218 mg/dL (70-110); Potassium 4.6 mmol/L (3.5-5.5); Sodium 137 mmol/L (135-145); Total Bilirubin 0.5 mg/dL (0.3-1.2); Total Protein 6.9 g/dL (6.2-8.2)
[2024-08-15 18:01] LABS: Appearance,Urine Clear (Clear); Bilirubin,Urine Negative (Negative); Blood,Urine Negative (Negative); Color,Urine Yellow (Yellow); Ketones,Urine Trace (Negative); Nitrite,Urine Negative (Negative); PH, Urine 5.5; Specific Gravity,Urine >1.035 (1.001-1.030); Urobilinogen,Urine 0.2
== END | disposition home or self-care (01) ==
LOC: LABPAT 10:19
PROVIDERS: ATTEND Orthopaedic Surgery
CPT/HCPCS: 80053; 81003; 83036; 85027; 85610; 85730; 87070

== ENCOUNTER 2024-08-30 10:09 | Day surgery (SDC) | payer OTHER ==
[~2024-08-30 10:09] MED LIST changes: -LIDOCAINE 1% (10MG/ML) FOR IV START INTRADERMA PRN; +ONDANSETRON 4 MG/2 ML VIAL IVP PRN
[2024-08-30] MEDS: IV FLUID CONTINUATION 1,000 ML IV ONE (10:38)
[2024-08-30 11:07] LABS: Glucose,Whole Blood 187 mg/dL (70-110)
[2024-08-30] MEDS: ACETAMINOPHEN TAB 500 MG TAB PO PRN (11:24)
[2024-08-30] MEDS: oxyCODONE ER 10 MG TAB.ER.12H PO PRN (11:24)
[2024-08-30] MEDS: KETOROLAC 15 MG/ML 1 ML VIAL IVP PRN (11:25)
[2024-08-30] MEDS: FAMOTIDINE 20 MG/2 ML VIAL IVP PRN (11:25)
[2024-08-30] MEDS: ONDANSETRON 4 MG/2 ML VIAL IVP ONE (11:25)
[2024-08-30] MEDS: DOCUSATE 100 MG CAP PO PRN (11:25)
[2024-08-30] MEDS: DEXAMETHASONE SOD PHOSPHATE 10 MG/ML 1 ML VIAL IV PRN (11:26)
[2024-08-30] MEDS: MIDAZOLAM 2 MG/2 ML VIAL IVP ONE (11:36)
[2024-08-30] MEDS: LACTATED RINGERS 1,000 ML IV SCH (11:59)
[2024-08-30] MEDS ORDERED: PHENYLEPHRINE-0.9% NACL SYG 1,000 MCG/10 ML SYRINGE ONE (12:13)
[2024-08-30] MEDS ORDERED: ROCURONIUM 10 MG/ML (5 ML VIAL) IV ONE (12:13)
[2024-08-30] MEDS ORDERED: NEOSTIGMINE 1 MG/ML 10 ML VIAL ONE (12:13)
[2024-08-30] MEDS ORDERED: DEXAMETHASONE SOD PHOSPHATE 4 MG/ML 1 ML VIAL ONE (12:13)
[2024-08-30] MEDS ORDERED: PROPOFOL 10 MG/ML 20 ML VIAL IV ONE (12:13)
[2024-08-30] MEDS ORDERED: GLYCOPYRROLATE 0.2 MG/ML 2 ML VIAL ONE (12:13)
[2024-08-30] MEDS ORDERED: ROPIVACAINE 5 MG/ML 30 ML VIAL ONE (12:13)
[2024-08-30] MEDS ORDERED: MIDAZOLAM 2 MG/2 ML VIAL ONE (12:13)
[2024-08-30] MEDS ORDERED: fentaNYL (PF) 50 MCG/ML 2 ML AMP ONE (12:13)
[2024-08-30] MEDS ORDERED: TRANEXAMIC 1,000 MG/100ML-NACL PREMIX BAG ONE (12:13)
[2024-08-30] MEDS ORDERED: LIDOCAINE 1% INJ 10MG/ML (20 ML MDV) ONE (12:13)
[2024-08-30] MEDS ORDERED: SUCCINYLCHOLINE CHLORIDE 200 MG/10 ML VIAL IV ONE (12:13)
[2024-08-30] MEDS: LACTATED RINGERS 1,000 ML IV ONE (12:45)
[2024-08-30] MEDS: ROPIVACAINE/EPI/CLONIDINE/KET 50 ML SYRINGE MISCELLANE PRN (12:55)
--- NOTE | 2024-08-30 13:14 | P.ANPRN ---
Procedure Note - Anesthesia - Nerve Block Performed Right Adductor Canal Single Time Out Performed: Yes Date of Procedure: 08/30/24 Procedure Start Time: 11:35 Procedure Stop Time: :47 Location of Patient: PreOp Indication: Acute Post-Operative Pain, Requested by Surgeon Sedation Type: Sedate with meaningful contact maintained Preparation: Sterile Prep, Sterile Dressing Position: Supine Catheter: None Needle Types: On-Q Needle Gauge: 20 Ultrasound used to visualize needle placement: Yes Ultrasound used to observe medication spread: Yes Injectate: 0.5% Ropivacaine (see comment for volume) (20 ml + decadron 2 mg) Blood Aspirated: No Pain Paresthesia on Injection Noted: No Resistance on Injection: Normal Image Stored and Saved: Yes Events: Uneventful and Well Tolerated Right iPack Single Time Out Performed: Yes Date of Procedure: 08/30/24 Procedure Start Time: Procedure Stop Time: :55 Location of Patient: PreOp Indication: Acute Post-Operative Pain, Requested by Surgeon Sedation Type: Sedate with meaningful contact maintained Preparation: Sterile Prep, Sterile Dressing Position: Left Lateral Catheter: None Needle Types: Facet Needle Gauge: 20 Ultrasound used to visualize needle placement: Yes Ultrasound used to observe medication spread: Yes Injectate: 0.5% Ropivacaine (see comment for volume) (10 ml + decadron 2 mg) Blood Aspirated: No Pain Paresthesia on Injection Noted: No Resistance on Injection: Normal Image Stored and Saved: Yes Events: Uneventful and Well Tolerated
[2024-08-30] MEDS ORDERED: HYDROmorphone 0.5 MG/0.5 ML SYRINGE IVP PRN (14:18)
[2024-08-30] MEDS ORDERED: MAGNESIUM HYDROXIDE 2,400 MG/30 ML CUP PO PRN (14:18)
[2024-08-30] MEDS ORDERED: ONDANSETRON 4 MG/2 ML VIAL IVP PRN (14:18)
[2024-08-30] MEDS ORDERED: NA PHOS,M-B/NA PHOS,DI-BA 133 ML ENEMA RECTAL PRN (14:18)
[2024-08-30] MEDS ORDERED: hydrOXYzine pamoate 25 MG CAP PO PRN (14:18)
[2024-08-30] MEDS ORDERED: NALOXONE 0.4 MG/ML 1 ML VIAL IV PRN (14:18)
[2024-08-30] MEDS ORDERED: bisacodyL 10 MG SUPP RECTAL PRN (14:18)
--- NOTE | 2024-08-30 14:18 | P.OP ---
Date of Procedure: 08/30/24 Preoperative Diagnosis: severe right knee osteoarthritis BMI 37.9 Postoperative Diagnosis: same Procedure(s) Performed: 1. Right total knee arthroplasty 2. Computer assisted musculoskeletal navigation using CT/MRI images Implants: 1. [employer] Tri[employer] CR Femur Size #4 2. [employer] Tri[employer] Jackson Tibial Base Size #4 3. [employer] CS poly Size #4, 10-mm 4. [employer] Tri[employer]lon all poly patella, Size #32 Anesthesia: MARION, regional Surgeon: Raghav Hay Director Funds Development #1: Jonah Squires Estimated Blood Loss (ml): 100 IV fluids (ml): 800 Pathology: none sent Condition: stable Disposition: PACU Indications for Procedure: I met with the patient preoperatively in the office setting and discussed treatment of their symptomatic knee arthritis. They failed a long course of nonsurgical treatment and elected to proceed with an elective total knee replacement. I discussed the potential risks and complications at length and gave them ample time to ask questions. Risks discussed included: risks from anesthesia, superficial site surgical infection, acute and/or chronic periprosthetic joint infection, delayed wound healing, drainage, wound necrosis, instability, stiffness, stiffness requiring manipulation and/or revision surgery, damage to local blood vessels or nerves, aseptic loosening of the implants, extensor mechanism issues including disruption, patellar maltracking, avascular necrosis etc., continued or worsened knee pain, generalized dissatisfaction with surgical outcome, need for revision surgery, an inability to regain preinjury level of function, DVT, PE, other medical complications, and possibly loss of life or limb. The patient voiced their understanding that while these are the most common complications other less common complications are possible. They provided both their verbal and written consent to go forward with surgery. Operative Findings: severe tricompartmental findings of osteoarthritis with complete loss of joint space. After registering the knee with the [employer] robotic system the patient had 11 of preoperative varus. This was corrected back to 4-degrees of varus using manipulation of implant position and a limited medial release. Description of Procedure: The patient was identified in preoperative holding and the correct operative extremity was verified and marked with a marker. I reviewed the consent form with the patient at length. All of their questions were answered. The patient was given a block by anesthesia. They were then brought back to the operating room. They were transferred onto the operating room table where a general anesthetic, preoperative antibiotics, and tranexamic acid were administered by anesthesia. A tourniquet was applied to the proximal aspect of the operative extremity. The contralateral extremity was padded under the heel and secured to the operating room table with a nonsterile blue towel and tape. The ipsilateral arm was carefully draped across the patient's chest and secured with a pillow and foam. A post was applied over the lateral aspect of the ipsilateral thigh and a bolster was placed under the ipsilateral foot. I verified that the operative extremity was stable and the knee was flexed to 90. The operative extremity was then placed in a leg choi, nonsterile drapes were applied, and the extremity was prepped and draped sterilely in the standard sterile fashion. Prior to starting surgery timeout was performed identifying the correct patient, operative extremity, and procedure. The leg was then elevated, exsanguinated with an Esmarch bandage, and the tourniquet was inflated. An anterior midline incision was made sharply with a scalpel. Once I had dissected deep to the superficial fascial layer medial and lateral flaps were elevated. A medial parapatellar arthrotomy was created. Upon opening the knee joint there were diffuse arthritic changes in all 3 compartments. The anterior horn of the medial meniscus were sharply released and a medial release was performed around the posterior medial corner of the knee to facilitate retractor placement. The fat pad was excised with electrocautery. The patella was found to be severely arthritic and a provisional cut was made with a sagittal saw to facilitate mobilization of the extensor mechanism during the procedure. Remnants of the ACL and PCL were then excised from the notch. 4 mm pins were then placed within the incision in the medial distal femur and proximal tibia. Arrays were applied to the pins and I verified they were completely tightened. The knee was then registered with the [employer] robot and manipulations in implant position were made to balance the knee and opitmize implant position. Using the [employer] robotic saw all cuts were made in accordance with our plan. After all bony fragments had been removed the cuts were verified with the planar probe. The tibia was then subluxed forward and sized. The knee was brought into flexion and a lamina retort unloader was placed to allow removal of the meniscal remnants both medially and laterally as well as posterior osteophytes. Local anesthetic was then infiltrated around the joint capsule. Trial implants were then placed within the knee. Range of motion and collateral ligament tension was then evaluated. Adjustments in implant size and position were then made accordingly. Once the knee was felt to be appropriately balanced the Vidal pins were removed. The patella was then recut, sized, and punched. A trial patellar button was then placed. With the trial components in place, the patella tracked midline. The femur was then drilled and the trial component removed. The trial tibial component was then appropriately rotated, pinned, and prepared for the keel. All trial components were then removed from the knee. The knee was thoroughly irrigated with pulsatile lavage. Cement was prepared via vacuum mixing in a bowl on the back table. I then hand pressurized cement into the femur and tibia and placed the implants beginning with the tibial base tray and poly liner, femoral component, and finally the patellar button. All extruded cement was removed including from the pin sites. Once the cement had hardened the knee was evaluated one final time with the final polyethylene liner in place. The knee had full extension and flexion and felt stable to varus and valgus stress throughout the arc of motion. The tourniquet was released and with the tourniquet down the patella tracked midline. All bleeders were controlled with electrocautery. The knee was then soaked for 3 minutes with a dilute Betadine soak. The knee was thoroughly irrigated using 3 L of sterile saline and pulsatile lavage. The extensor mechanism was then reapproximated using pop off Vicryl sutures followed by a running barbed suture. The knee was then closed in layers with a 0 strata fix for the deep fascial layer, 2-0 strata fix for the superficial subcutaneous layer and Monocryl and Steri-Strips for the skin. A sterile dressing was applied. I verified that all instrument, sponge, and sharp counts were correct. The patient was then transferred off the operating room table, extubated, and brought to recovery having tolerated the procedure well. Jonah Squires PA-C was required as a skilled quality control assistant for patient positioning, draping, exposure, retraction, closure of wound and application of dressing PLAN: The patient can weight-bear as tolerated on the operative extremity. DVT prophylaxis with aspirin 81 mg twice a day based on preoperative risk stratification. Internal medicine for perioperative medical management. 2 doses of post-operative antibiotics. Physical therapy for gait training. Follow-up in the office in 2 weeks for wound check and x-rays of the knee including an AP and lateral.
[2024-08-30 14:36] LABS: Glucose,Whole Blood 276 mg/dL (70-110)
[2024-08-30] MEDS ORDERED: ALPRAZolam 0.5 MG TAB PO PRN (15:54)
[2024-08-30] MEDS ORDERED: DEXTROSE 50% SYRINGE 50 ML IVP PRN ×2 (16:01)
--- NOTE | 2024-08-30 16:10 | XR ---
EXAMINATION TYPE: XR knee limited RT DATE OF EXAM: 08/30/2024 4:05 PM COMPARISON: None CLINICAL INDICATION: Male, 68 years old with history of Evaluation for Postop abnormality and alignme nt; [facility] TECHNIQUE: XR knee limited RT 2 views submitted.. FINDINGS: Status post total knee arthroplasty changes with hardware in appropriate alignment and in tact. No evidence of fracture. Subcutaneous lucencies and lucencies within the joint consistent with surgical changes. IMPRESSION: Status post total knee arthroplasty changes with hardware intact and appropriate alignment. No fractu res identified. [facility], , 08/30/2024 4:08 PM
[2024-08-30 16:11] LABS: Glucose,Whole Blood 278 mg/dL (70-110)
[2024-08-30] MEDS: HYDROcodone/APAP 5-325MG 1 EACH TAB PO PRN (16:38)
[2024-08-30] MEDS: SODIUM CHLORIDE 0.9% 1,000 ML IV SCH (16:44)
--- NOTE | 2024-08-30 17:05 | P.CONS ---
History of Present Illness - Reason for Consult Consult date: 08/30/24 - History of Present Illness 68 year old M with PMH of DM, COPD, HTN, Anxiety and Depression, Hypothyroid, HLD presents to [facility] for [facility]. He underwent Right total knee arthroplasty with Dr. Hay. [facility] consulted for medical management of this patient. He has not voided yet. Not passing gas yet. No bowel movement. Pain 5/10. POC glucose 187-278. General: non toxic, no distress, appears at stated age Derm: warm, dry Head: atraumatic, normocephalic, symmetric Eyes: EOMI, no lid lag, anicteric sclera Mouth: no lip lesion, mucus membranes moist Cardiovascular: S1S2 reg, no murmur Lungs: CTA bilateral, no rhonchi, no rales, no accessory muscle use Ext: no gross muscle atrophy, no edema, no contractures, RUE fistula Neuro: no focal neuro deficits Psych: Alert, oriented, appropriate affect Based on my assessment of this patient, this patient meets a moderate complexity level of care. DM with hyperglycemia: ISS ACHS. Accuchecks ACHS. Hypoglycemic precautions. COPD: Symbicort 2 INH BID. HTN: Lisinopril 2.5 mg PO QD. Anxiety and Depression: Pristiq 100 mg PO QD. Xanax 0.5 mg PO TID PRN. Hypothyroid: Synthroid 75 mcg PO QD. HLD: Zocor 10 mg PO QHS. CODE STATUS: FULL CODE DVT Prophylaxis: ASA BID GI Prophylaxis: Designated medical POA if patient is not able to make medical decisions for themselves: I have reviewed the following cardiology consultants notes: Operative note. I have reviewed the results of the following tests: As above. I have ordered the following tests: I have discussed the care of this patient with the following independent historian: RN. . 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 which help, does not sign, reads lips very well, takes BP pill for kidneys, not for high BP per spouse History of Any Multi-Drug Resistant Organisms: None Reported Past Surgical History: Hernia Repair, Joint Replacement Additional Past Surgical History / Comment(s): left hip replaced May 2024 Past Anesthesia/Blood Transfusion Reactions: No Reported Reaction Smoking Status: Never smoker - Past Family History Mother Family Medical History: No Reported History Medications and Allergies Home Medications Medication Instructions Recorded Confirmed Type ALPRAZolam [Xanax] 0.5 mg PO TID PRN 11/02/14 08/30/24 History Desvenlafaxine Succinate [Pristiq] 100 mg PO DAILY 11/02/14 08/30/24 History Levothyroxine Sodium [Synthroid] 75 mcg PO DAILY 11/02/14 08/30/24 History Melatonin 3 mg PO HS 11/02/14 08/30/24 History Naproxen [Naprosyn] 500 mg PO Q12HR PRN 11/02/14 08/30/24 History Simvastatin [Zocor] 10 mg PO HS 11/02/14 08/30/24 History lisinopriL [Zestril] 2.5 mg PO DAILY 11/02/14 08/30/24 History metFORMIN HCL [Glucophage] 1,000 mg PO BID 11/02/14 08/30/24 History Albuterol Inhaler [Ventolin Hfa 1 - 2 puff INHALATION Q6H PRN 05/24/24 08/30/24 History Inhaler] Budesonide-Formot 160-4.5 Mcg 2 puff INHALATION BID 05/24/24 08/30/24 History [Symbicort 160-4.5 Mcg Inhaler] Celecoxib [CeleBREX] 200 mg PO DAILY 05/24/24 08/30/24 History Cetirizine HCl [Zyrtec] 10 mg PO DAILY 05/24/24 08/30/24 History Mupirocin [Bactroban Nasal 1 applic TOPICAL DIRECTED 05/24/24 08/30/24 History Ointment 2% (with applicator)] Pioglitazone [Actos] 30 mg PO DAILY 05/24/24 08/30/24 History Zinc Gluconate [Zinc] 50 mg PO BID 05/24/24 08/30/24 History glipiZIDE [Glucotrol] 5 mg PO AC-BRKFST 05/24/24 08/30/24 History Aspirin 81 mg PO BID #60 tab 08/30/24 Rx Diclofenac Sodium [Voltaren] 75 mg PO BID #60 tab 08/30/24 Rx Docusate [Colace] 100 mg PO BID #60 capsule 08/30/24 Rx HYDROcodone/APAP 5-325MG [[place] 1 - 2 tab PO Q6HR PRN #56 tab 08/30/24 Rx 5-325] Omeprazole 40 mg PO DAILY #30 cap 08/30/24 Rx Allergies Allergy/AdvReac Type Severity Reaction Status Date / Time No Known Allergies Allergy Verified 08/30/24 10:53 Physical Exam Vitals: Vital Signs Temp Pulse Resp BP Pulse Ox 08/30/24 15:15 100 12 120/64 94 L 08/30/24 15:01 97 12 118/65 95 08/30/24 14:46 82 12 110/59 96 08/30/24 14:31 98 F 81 16 108/58 95 08/30/24 11:53 92 16 155/77 99 08/30/24 11:11 98.9 F 91 16 142/79 97 Intake and Output 08/30/24 08/30/24 08/30/24 06:59 14:59 22:59 Intake Total 1550 Output Total 100 Balance 1450 Intake: IV 1550 Output: Estimated Blood Loss 100 Other: Weight 101.8 kg Results Labs: Abnormal Lab Results - Last 24 Hours (Table) 08/30/24 08/30/24 08/30/24 Range/Units 11:06 14:34 16:10 POC Glucose (mg/dL) 187 H 276 H 278 H (70-110) mg/dL
[2024-08-30] MEDS: DEXAMETHASONE SOD PHOSPHATE 4 MG/ML 1 ML VIAL IV ONE (18:02)
[2024-08-30] MEDS: INSULIN ASPART (NovoLOG) 100 UNIT/ML VIAL SQ SCH (18:23)
[2024-08-30 20:08] LABS: Glucose,Whole Blood 250 mg/dL (70-110)
[2024-08-30] MEDS: SYMBICORT 160-4.5 MCG INHALER INHALATION SCH (20:50)
[2024-08-30] MEDS: ASPIRIN 81 MG PO SCH (21:31)
[2024-08-30] MEDS: ATORVASTATIN 10 MG TAB PO SCH (21:31)
[2024-08-30] MEDS: SENNOSIDES-DOCUSATE SODIUM 1 EACH TAB PO SCH (21:31)
[2024-08-30] MEDS: HYDROcodone/APAP 10-325MG 1 EACH TAB PO PRN (22:34)
[2024-08-31] MEDS: LEVOTHYROXINE 75 MCG TAB PO SCH (06:02)
[2024-08-31 06:07] LABS: Glucose,Whole Blood 187 mg/dL (70-110)
--- NOTE | 2024-08-31 07:43 | P.DS ---
Providers Attending physician: Raghav Hay Consults: 08/30/24 14:18 Consult Physician Routine Consulting Provider: Magdiel Boyer Consult Reason/Comments: post op medical management Do you want consulting provider notified?: Yes Primary care physician: [facility] Course: The patient is a pleasant 68-year-old male with severe right knee osteoarthritis who failed a long course of nonsurgical treatment and elected to proceed with an elective total knee replacement. He presented to preop on 08/30/2024 for scheduled right total knee arthroplasty with Dr. Hay. Patient tolerated the procedure well. Patient was transferred to the orthopedic floor. Patient was evaluated by medicine. Patient had no acute events overnight. Patient was examined at bedside this morning. Patient was resting in bed comfortably. No acute distress. Patient was awake, alert and able to answer questions. Patient states their pain is controlled with oral pain medication. A focused exam of the right lower extremity was conducted. There is a surgical dressing over the right anterior knee, it is clean, dry, intact, without strikethrough or surrounding erythema. The right femoral nerve function is grossly intact. Patient is able to plantarflex and dorsiflex the right ankle and toes. Patient's right foot is pink appears well-perfused with brisk capillary refill. Patient's pain has been managed with oral pain medication. Patient will work with physical therapy. If patient passes physical therapy patient would like to be discharged home later this afternoon. Patient will have outpatient follow-up in 2 weeks. Assessment: Status post right total knee arthroplasty for right knee osteoarthritis on 08/30/2024. Plan - Discharge Summary Discharge Rx Participant: No New Discharge Prescriptions: New Omeprazole 40 mg PO DAILY #30 cap Aspirin 81 mg PO BID #60 tab Docusate [Colace] 100 mg PO BID #60 capsule Diclofenac Sodium [Voltaren] 75 mg PO BID #60 tab HYDROcodone/APAP 5-325MG [Argenta 5-325] 1 - 2 tab PO Q6HR PRN #56 tab PRN Reason: Pain No Action lisinopriL [Zestril] 2.5 mg PO DAILY ALPRAZolam [Xanax] 0.5 mg PO TID PRN PRN Reason: Anxiety metFORMIN HCL [Glucophage] 1,000 mg PO BID Simvastatin [Zocor] 10 mg PO HS Naproxen [Naprosyn] 500 mg PO Q12HR PRN PRN Reason: Pain Levothyroxine Sodium [Synthroid] 75 mcg PO DAILY Desvenlafaxine Succinate [Pristiq] 100 mg PO DAILY Melatonin 3 mg PO HS Budesonide-Formot 160-4.5 Mcg [Symbicort 160-4.5 Mcg Inhaler] 2 puff INHALATION BID Zinc Gluconate [Zinc] 50 mg PO BID Pioglitazone [Actos] 30 mg PO DAILY glipiZIDE [Glucotrol] 5 mg PO AC-BRKFST Albuterol Inhaler [Ventolin Hfa Inhaler] 1 - 2 puff INHALATION Q6H PRN PRN Reason: Shortness Of Breath Celecoxib [CeleBREX] 200 mg PO DAILY Mupirocin [Bactroban Nasal Ointment 2% (with applicator)] 1 applic TOPICAL DIRECTED Cetirizine HCl [Zyrtec] 10 mg PO DAILY Discharge Medication List ALPRAZolam [Xanax] 0.5 mg PO TID PRN 11/02/14 [History] Desvenlafaxine Succinate [Pristiq] 100 mg PO DAILY 11/02/14 [History] Levothyroxine Sodium [Synthroid] 75 mcg PO DAILY 11/02/14 [History] Melatonin 3 mg PO HS 11/02/14 [History] Naproxen [Naprosyn] 500 mg PO Q12HR PRN 11/02/14 [History] Simvastatin [Zocor] 10 mg PO HS 11/02/14 [History] lisinopriL [Zestril] 2.5 mg PO DAILY 11/02/14 [History] metFORMIN HCL [Glucophage] 1,000 mg PO BID 11/02/14 [History] Albuterol Inhaler [Ventolin Hfa Inhaler] 1 - 2 puff INHALATION Q6H PRN 05/24/24 [History] Budesonide-Formot 160-4.5 Mcg [Symbicort 160-4.5 Mcg Inhaler] 2 puff INHALATION BID 05/24/24 [History] Celecoxib [CeleBREX] 200 mg PO DAILY 05/24/24 [History] Cetirizine HCl [Zyrtec] 10 mg PO DAILY 05/24/24 [History] Mupirocin [Bactroban Nasal Ointment 2% (with applicator)] 1 applic TOPICAL DIRECTED 05/24/24 [History] Pioglitazone [Actos] 30 mg PO DAILY 05/24/24 [History] Zinc Gluconate [Zinc] 50 mg PO BID 05/24/24 [History] glipiZIDE [Glucotrol] 5 mg PO AC-BRKFST 05/24/24 [History] Aspirin 81 mg PO BID #60 tab 08/30/24 [Rx] Diclofenac Sodium [Voltaren] 75 mg PO BID #60 tab 08/30/24 [Rx] Docusate [Colace] 100 mg PO BID #60 capsule 08/30/24 [Rx] HYDROcodone/APAP 5-325MG [Argent[place] 5-325] 1 - 2 tab PO Q6HR PRN #56 tab 08/30/24 [Rx] Omeprazole 40 mg PO DAILY #30 cap 08/30/24 [Rx] Follow up Appointment(s)/Referral(s): Raghav Hay MD [Medical Doctor] - 2 Weeks Activity/Diet/Wound Care/Special Instructions: 1. Weight-bear as tolerated on your operative extremity unless instructed otherwise. Use a walker or other assistive device to ambulate. 2. Leave surgical dressing in place. If your dressing becomes saturated with blood, there is drainage, or the dressing becomes loose please contact the office. 3. It is okay to shower with your surgical dressing, but do not submerge in water (no hot tubs, bath's, swimming etc.) 4. Make sure to take her blood clot prevention medication as prescribed (aspirin, Eliquis, Xarelto, and Plavix are commonly prescribed medications for blood clot prevention) 5. While taking Argenta or Percocet for pain make sure you're taking a stool softener (Colace) and drink lots of water. 6. Keep all follow-up appointments as scheduled. You will usually be seen in 1-2 weeks following surgery. 7. Please contact the office with any questions or concerns [phone] Discharge Disposition: HOME WITH HOME HEALTH SERVICES
[2024-08-31 08:13] VITALS: BP 107/61; PULSE 90; RESP 17; TEMP 98.7
[2024-08-31 08:28] LABS: HCT 38.6 % (39.6-50.0); HGB 12.9 g/dL (13.0-17.0); MCH 29.1 pg (27.0-32.0); MCHC 33.4 g/dL (32.0-37.0); MCV 87.1 FL (80.0-97.0); Mean Platelet Volume 9.6 FL (9.5-12.2); NRBC Per 100 WBC 0 X 10*3/uL (0.00-0.01); Platelet Count 271 X 10*3/uL (140-440); RBC 4.43 X 10*6/uL (4.40-5.60); WBC 16.19 X 10*3/uL (4.50-10.00)
[2024-08-31] MEDS: LORATADINE 10 MG TAB PO SCH (08:40)
[2024-08-31] MEDS: DESVENLAFAXINE SUCCINATE 50 MG TAB.ER.24H PO SCH (08:41)
[2024-08-31 11:09] LABS: Basophils # (A) 0.04 X 10*3/uL (0.00-0.10); Basophils % (A) 0.2 %; Eosinophils # (A) 0 X 10*3/uL (0.04-0.35); Eosinophils % (A) 0 %; Lymphocytes # (A) 1.06 X 10*3/uL (0.90-5.00); Lymphocytes % (A) 6.5 %; Monocytes # (A) 1.55 X 10*3/uL (0.20-1.00); Monocytes % (A) 9.6 %; Neutrophils # (A) 13.45 X 10*3/uL (1.80-7.70); Neutrophils % (A) 83.1 %; RBC Morphology Normal (Normal)
== END 2024-08-31 10:44 | disposition home health service (06) ==
LOC: OR 10:09 → 4SSUR 14:23 → OR 08-31 10:44
PROVIDERS: ATTEND Orthopaedic Surgery
DX: M17.11 Unilateral primary osteoarthritis, right knee (principal); E11.9 Type 2 diabetes mellitus without complications; E66.9 Obesity, unspecified; Z47.1 Aftercare following joint replacement surgery; Z68.37 Body mass index [BMI] 37.0-37.9, adult; Z96.642 Presence of left artificial hip joint
CPT/HCPCS: 94640; 97161; 85025; 73560; 27447; J2250; J1100; J0690 ×2; J2405; J3490; J1885; 64447; 64999